=== PATIENT | male | born 1995 | race Two or more races ===

== ENCOUNTER 2019-02-12 19:36 | Emergency (ER) | payer OTHER ==
[2019-02-12 19:51] VITALS: BP 105/65; PULSE 74; TEMP 98.5; BMI 27.3
[2019-02-12] MEDS ORDERED: ACETAMINOPHEN 500 MG TABLET (FP) PO ONE (19:58)
[2019-02-12] MEDS ORDERED: ACETAMINOPHEN 500 MG TABLET (FP) ONE (19:59)
--- NOTE | 2019-02-13 03:43 | PDOC ---
Documentation entered by Kaykay Garcia SCRIBE, acting as scribe for Nida Wolfe MD. Nida Wolfe MD: This documentation has been prepared by the scribeJose Natalie, SCRIBE, under my direction and personally reviewed by me in its entirety. I confirm that the documentation accurately reflects all work, treatment, procedures, and medical decision making performed by me. History of Present Illness - General Chief Complaint: Injury Stated Complaint: LEFT ARM INJURY Time Seen by Provider: 02/12/19 19:39 History Source: Patient Exam Limitations: No Limitations - History of Present Illness Initial Comments: 02/12/19 20:05 The patient is a 23-year-old male, with no past medical history, who presents to the ED s/p mechanical fall this evening. The patient was attempting to jump on an inflatable in his inground pool and slipped, hitting his LT arm on the concrete partition between the pool. He denies any head or neck trauma. The patient was in the pool when he became dizzy and lightheaded. He decided to get out of the pool and his family was able to push a chair underneath him before he experienced a syncopal episode. The patient was brought to the ED for further evaluation. On exam, he is complaining of pain and numbness and tingling of the LT forearm. The patient denies having any other injuries or symptoms. Allergies: Azithromycin. Social History None reported. Surgical History: Appendectomy, Hernia repair. Past History - Past Medical History Allergies/Adverse Reactions: Allergies Allergy/AdvReac Type Severity Reaction Status Date / Time azithromycin Allergy Mild Rash Verified 02/12/19 19:50 Home Medications: Ambulatory Orders NK [No Known Home Medication] 02/12/19 COPD: No - Surgical History Abdominal Surgery: Yes (Hernia) Appendectomy: Yes - Immunization History Immunization Up to Date: Yes - Suicide/Smoking/Psychosocial Hx Smoking History: Current every day smoker Information on smoking cessation initiated: Yes Hx Alcohol Use: No Drug/Substance Use Hx: No Review of Systems - Review of Systems Able to Perform ROS?: Yes Comments:: 02/12/19 20:07 CONSTITUTIONAL: Absent: fever, no chills, no fatigue EYES: Absent: visual changes ENT: Absent: ear pain, no sore throat CARDIOVASCULAR: Absent: chest pain, no palpitations RESPIRATORY: Absent: cough, no SOB GI: Absent: abdominal pain, no nausea, no vomiting, no constipation, no diarrhea GENITOURINARY: Absent: dysuria, no frequency, no hematuria MUSKULOSKELETAL: (+)LT arm pain and numbness and tingling. Absent: back pain, no arthralgia SKIN: Absent: rash NEURO: Absent: headache *Physical Exam - Vital Signs Last Vital Signs Temp Pulse Resp BP Pulse Ox 98.5 F 74 16 105/65 100 02/12/19 19:37 02/12/19 19:37 02/12/19 19:37 02/12/19 19:37 02/12/19 19:37 - Physical Exam Comments: 02/12/19 20:08 GENERAL: Well-appearing, well-nourished. No apparent distress. HEENT: Normocephalic, atraumatic. PERRL, EOM intact. NECK: Nontender and fully mobile. CARDIOVASCULAR: Normal S1, S2. Regular rate and rhythm. PULMONARY: Clear to auscultation bilaterally. ABDOMEN: Soft, non-distended, non-tender. EXTREMITIES: (+)Moderate edema noted to the LUE, marked tenderness to the dorsal portion of the proximal LT forearm with pain on active and passive flexion of the elbow and supination of the forearm. Patient has a palpable radial pulse. SKIN: Warm, dry. No rash NEUROLOGICAL: No focal neurological deficits. ED Treatment Course - Medications Given in the ED: ED Medications Discontinued Medications Generic Name Dose Route Start Last Admin Trade Name Freq PRN Reason Stop Dose Admin Acetaminophen 1,000 mg 02/12/19 19:58 02/12/19 20:00 Tylenol - PO 02/12/19 19:59 1,000 mg ONCE ONE Administration Progress Note - Progress Note Progress Note: As noted above, this 23-year-old man presents with painful, swollen proximal left forearm after falling in his pool. Pain worse with supination/pronation of the forearm. Exam as noted. Left forearm x-ray performed and interpreted by Dr. Reina of the radiology staff: No evidence of fracture/dislocation. Because of the patient's mechanism and location of tenderness, subtle radial head fracture still possible with delayed diagnosis. Sugar tong splint fashioned from Ortho[employer]Glass material and secured with Moises wraps. Neurovascular functioning intact after placement of splint. Left arm placed in sling. Family is followed by orthopedic group associated with [facility]. He will follow-up with orthopedic group within the next 3-4 days *DC/Admit/Observation/Transfer Diagnosis at time of Disposition: Contusion of left forearm Qualifiers: Encounter type: initial encounter Qualified Code(s): S50.12XA - Contusion of left forearm, initial encounter - Discharge Dispostion Disposition: HOME Condition at time of disposition: Stable - Referrals - Patient Instructions Printed Discharge Instructions: DI for Contusion Additional Instructions: elevate; apply ice to area as much as possible for the next 2 days keep splint in place until seen by your orthopedist sling when up and around Motrin/Aleve/Tylenol as needed for pain followup with your orthopedist within 3-4 days return to ER if pain worsens - Post Discharge Activity
== END 2019-02-12 20:58 | disposition home or self-care (01) ==
LOC: FER 19:36
PROC: 2W3DX1Z Immobilization of Left Lower Arm using Splint (ICD-10-PCS; principal; 2019-02-12)
DX: S50.12XA Contusion of left forearm, initial encounter (principal); W01.198A Fall on same level from slipping, tripping and stumbling with subsequent striking against other object, initial encounter; Y93.11 Activity, swimming; Y92.098 Other place in other non-institutional residence as the place of occurrence of the external cause; F17.210 Nicotine dependence, cigarettes, uncomplicated; Z88.1 Allergy status to other antibiotic agents
CPT/HCPCS: 29126; 73090-TC-LT-FY; 99283-25